=== PATIENT | female | born 1970 | race Two or more races ===

== ENCOUNTER 2020-02-04 19:57 | Emergency (ER) | payer BC ==
[~2020-02-04] VITALS: Ht 157.5 cm; Wt 55.8 kg
--- NOTE | 2020-02-04 20:34 | NUR ---
PATIENT ARRIVES TO THE ER WITH PARANOID THOUGHTS, ANXIETY AND THOUGHTS OF IMPENDING DOOM. PATIENT STATES SHE FEELS LIKE SOMETHING IS TICKING IN HER HEAD, AND LIKE IT MAKES HER FEEL ANXIOUS AND SOME CHEST PRESSURE.
--- NOTE | 2020-02-04 20:44 | NUR ---
PATIENT IS AFRAID THAT PEOPLE ARE GOING TO HURT HER; SHES NERVOUS. THIS BEGAN AFTER A FALL AT WORK AND HURT HER KNEES November AND SHE'S BEEN IN PT BUT SHE'S BEEN INCREASINGLY ANXIOUS THAT PEOPLE ARE OUT TO HARM HER
[2020-02-04] MEDS ORDERED: LORazepam 1MG TABLET ONE (20:59)
[2020-02-04] MEDS ORDERED: LORazepam 1MG TABLET PO ONE (21:00)
[2020-02-04 21:21] LABS: ALANINE AMINOTRANSFERASE 26 U/L (12-78); ANION GAP 7 mmol/L (5-15); CALCIUM 9.2 mg/dL (8.5-10.1); CHLORIDE 109 mmol/L (98-107); CREATININE 0.85 mg/dL (0.55-1.02)
[2020-02-04 21:22] LABS: SALICYLATE LEVEL < 1.7 mg/dL (2.8-20.0)
[2020-02-04 21:23] LABS: ALKALINE PHOSPHATASE 82 U/L (45-117); BILIRUBIN,TOTAL 0.4 mg/dL (0.2-1.0)
[2020-02-04 21:25] LABS: AMPHETAMINE SCREEN, URINE Negative (Negative); BARBITURATE SCREEN, URINE Negative (Negative); BENZODIAZEPINE SCREEN, URINE Negative (Negative); CANNABINOID SCREEN, URINE Negative (Negative); COCAINE SCREEN, URINE Negative (Negative); METHADONE SCREEN, URINE Negative (Negative); OPIATE SCREEN, URINE Negative (Negative)
[2020-02-04 22:18] LABS: BASOPHILS # (AUTO) 0.02 x10^3/uL (0-0.1); BASOPHILS % (AUTO) 0 % (0-1); EOSINOPHILS % (AUTO) 0 % (1-7); LYMPHOCYTES % (AUTO) 23 % (22-44); MD NO; MEAN CORPUSCULAR HEMOGLOBIN 30.9 pg (27.0-34.8); MEAN CORPUSCULAR HGB CONC 32.7 g/dL (32.4-35.8); MEAN CORPUSCULAR VOLUME 94.6 fL (80-100); MEAN PLATELET VOLUME 8.8 fL (7.4-10.4); MONOCYTES # (AUTO) 0.42 x10^3/uL (0.2-0.8); MONOCYTES % (AUTO) 7 % (2-9); NEUTROPHILS # (AUTO) 4.18 x10^3/uL (1.8-6.8); NEUTROPHILS % (AUTO) 69 % (42-75); PLATELET COUNT 223 x10^3/uL (130-400); RED CELL DISTRIBUTION WIDTH 13.8 % (9.6-15.2)
--- NOTE | 2020-02-04 22:30 | NUR ---
Throughput Rn: Telepsych initiated.
--- NOTE | 2020-02-04 22:51 | NUR ---
PATIENT CALMER. IN BED, DAUGHTER AT BEDSIDE. TELEPSYCH SET UP AND AWAITING CONSULT
--- NOTE | 2020-02-04 23:09 | NUR ---
Throughput nurse: Telepsych called back and reported "we are experincing a high call volume. We are reaching out to other providers to help with call volume."
--- NOTE | 2020-02-04 23:26 | NUR ---
patient calm, in bed, talking to daughter awaiting telepsych
--- NOTE | 2020-02-05 00:51 | NUR ---
patient sleeping in bed awaiting telepsych. daughter at bedside.
--- NOTE | 2020-02-05 01:28 | NUR ---
soc on telephone, updated md on pt status, md to consult with pt
--- NOTE | 2020-02-05 01:34 | NUR ---
TELEPSYCH CONSULT IN PROCESS
[2020-02-05 01:48] VITALS: BP 107/72
[2020-02-05] MEDS ORDERED: RISPERIDONE 0.5 MG TABLET PO ONE (02:00)
--- NOTE | 2020-02-05 02:03 | NUR ---
PT MEDICATED PER MAR
== END 2020-02-05 02:09 | disposition home or self-care (01) ==
LOC: ED 21:45
DX: F23 Brief psychotic disorder (principal); F41.9 Anxiety disorder, unspecified
CPT/HCPCS: 36415; 80053; 80307; 85025; 99283

== ENCOUNTER 2020-02-08 10:08 | Emergency (ER) | payer BC ==
[~2020-02-08] VITALS: Ht 152.4 cm; Wt 56.5 kg
--- NOTE | 2020-02-08 10:32 | NUR ---
PROVIDER IN ROOM FOR EVAL. EKG SHOWS NSR. CALL COATES IN REACH, DAUGHTER AT BEDSIDE.
[2020-02-08 10:56] LABS: BASOPHILS # (AUTO) 0.01 x10^3/uL (0-0.1); BASOPHILS % (AUTO) 0 % (0-1); EOSINOPHILS # (AUTO) 0.02 x10^3/uL (0-0.4); EOSINOPHILS % (AUTO) 1 % (1-7); LYMPHOCYTES # (AUTO) 1.42 x10^3/uL (1-3.4); LYMPHOCYTES % (AUTO) 36 % (22-44); MD NO; MEAN CORPUSCULAR HEMOGLOBIN 31.4 pg (27.0-34.8); MEAN CORPUSCULAR HGB CONC 33.2 g/dL (32.4-35.8); MEAN CORPUSCULAR VOLUME 94.8 fL (80-100); MEAN PLATELET VOLUME 8.6 fL (7.4-10.4); MONOCYTES % (AUTO) 8 % (2-9); NEUTROPHILS # (AUTO) 2.17 x10^3/uL (1.8-6.8); NEUTROPHILS % (AUTO) 55 % (42-75); PLATELET COUNT 223 x10^3/uL (130-400); RED BLOOD COUNT 4.04 x10^6/uL (3.82-5.3); RED CELL DISTRIBUTION WIDTH 13.9 % (9.6-15.2)
[2020-02-08 11:00] LABS: ALANINE AMINOTRANSFERASE 23 U/L (12-78); ALBUMIN 3.6 g/dL (3.4-5.0); ANION GAP 6 mmol/L (5-15); CALCIUM 8.7 mg/dL (8.5-10.1); CHLORIDE 105 mmol/L (98-107); CREATININE 0.69 mg/dL (0.55-1.02)
[2020-02-08 11:04] LABS: ALKALINE PHOSPHATASE 73 U/L (45-117); BILIRUBIN,TOTAL 0.6 mg/dL (0.2-1.0); TOTAL PROTEIN 7.7 g/dL (6.4-8.2); TROPONIN I < 0.015 ng/mL (0.000-0.045)
--- NOTE | 2020-02-08 11:09 | NUR ---
UA SENT. PT C/O "HEAT" OVER ABDOMEN. CTM.
[2020-02-08 11:33] LABS: AMPHETAMINE SCREEN, URINE Negative (Negative); BARBITURATE SCREEN, URINE Negative (Negative); BENZODIAZEPINE SCREEN, URINE Negative (Negative); CANNABINOID SCREEN, URINE Negative (Negative); COCAINE SCREEN, URINE Negative (Negative); METHADONE SCREEN, URINE Negative (Negative); OPIATE SCREEN, URINE Negative (Negative)
--- NOTE | 2020-02-08 11:41 | NUR ---
shar, results [email or web address]
[2020-02-08 12:10] VITALS: BP 115/79
== END 2020-02-08 12:15 | disposition home or self-care (01) ==
LOC: ED 10:39
DX: R06.00 Dyspnea, unspecified (principal); R07.89 Other chest pain; E03.9 Hypothyroidism, unspecified; I25.2 Old myocardial infarction
CPT/HCPCS: 36415; 71045; 80053; 80307; 84443; 84484; 85025; 93005; 99285